=== PATIENT | male | born 1935 | race Caucasian/White ===

== ENCOUNTER 2019-06-27 13:13 | Inpatient (IN) | payer MEDICARE, BC ==
[~2019-06-27] VITALS: Ht 162.6 cm; Wt 64.8 kg
[2019-06-27] MEDS ORDERED: ASPIRIN E.C. 8181 MG PO (15:11)
[2019-06-27] MEDS ORDERED: TYLENOL 325MG325 MG PO (15:11)
[2019-06-27] MEDS ORDERED: VITAMIN D31000 I1 PO (15:12)
[2019-06-27] MEDS ORDERED: VITAMIN B122500 MCG PO (15:13)
[2019-06-27] MEDS ORDERED: FERROUSAL325 MG PO (15:14)
[2019-06-27] MEDS ORDERED: FOLIC ACID800 MCG PO (15:15)
[2019-06-27] MEDS ORDERED: NEURONTIN300 MG/CAP PO (15:16)
[2019-06-27] MEDS ORDERED: ULTRAVATE CREAM15 GM TP (15:17)
[2019-06-27] MEDS ORDERED: MULTI VITAMINS1 TAB PO (15:18)
[2019-06-27] MEDS ORDERED: NITROSTAT0.4 MG/TAB SL (15:19)
[2019-06-27] MEDS ORDERED: PRILOSEC 20MG20 MG PO (15:19)
[2019-06-27] MEDS ORDERED: ALTACE 5MG5 MG PO (15:20)
[2019-06-27] MEDS ORDERED: ZOCOR 10MG10 MG PO (15:20)
[2019-06-27] MEDS ORDERED: HYTRIN 5MG C5 MG/CAP PO (15:21)
[2019-06-27 16:45] LABS: BASO # 0.1 (0.0-0.2); BASO % 0.7 % (0.0-2.0); EOS # 0.1 (0.0-0.7); EOS % 1.4 % (0-4.0); GRAN # 6.6 (1.4-6.5); GRAN % 74.4 % (42.2-75.2); HEMATOCRIT 39.4 % (42.0-52.0); HEMOGLOBIN 12.9 g/dl (13.5-18.0); LYMPH # 1.4 (1.2-3.4); LYMPH % 15.4 % (20.0-51.0); MEAN CELL VOLUME 90 fl (80.0-100.0); MEAN CORPUSCULAR HEMOGLOBIN 30 pg (27.0-31.0); MEAN CORPUSCULAR HGB CONC 33 g/dl (33.0-37.0); MEAN PLATELET VOLUME 11.2 fl (7.4-10.4); MONO # 0.7 (0.1-0.6); MONO % 7.4 % (1.7-9.3); PLATELET COUNT 230 K/mm3 (130-400); RED BLOOD COUNT 4.37 M/mm3 (4.20-5.60); REDCELL DISTRIBUTION WIDTH-CV 13.6 % (11.5-14.5)
[2019-06-27 16:50] LABS: BILIRUBIN,TOTAL 0.3 mg/dL (0.0-1.0); CALCIUM 10.5 mg/dL (8.4-10.2); CREATININE, serum 1.02 (0.66-1.25); POTASSIUM 4.4 mmol/L (3.4-5.0); TOTAL PROTEIN 6.7 gm/dL (6.4-8.2)
[2019-06-27 17:00] VITALS: BP 127/52; PULSE 83; TEMP 98.4
[2019-06-27 18:00] LABS: PROTHROMBIN TIME 11.5 SECONDS (9.7-12.8)
[2019-06-27 19:48] VITALS: BP 144/56; PULSE 83; TEMP 98.3
[2019-06-27 23:20] VITALS: BP 115/54; PULSE 82; TEMP 99
[2019-06-28 04:47] VITALS: BP 125/58; PULSE 76; TEMP 98
[2019-06-28 07:18] LABS: BASO # 0.1 (0.0-0.2); BASO % 0.7 % (0.0-2.0); EOS # 0.2 (0.0-0.7); EOS % 1.9 % (0-4.0); GRAN # 6.3 (1.4-6.5); GRAN % 69.8 % (42.2-75.2); HEMATOCRIT 37.3 % (42.0-52.0); HEMOGLOBIN 12.2 g/dl (13.5-18.0); LYMPH # 1.5 (1.2-3.4); LYMPH % 16.7 % (20.0-51.0); MEAN CELL VOLUME 91 fl (80.0-100.0); MEAN CORPUSCULAR HEMOGLOBIN 30 pg (27.0-31.0); MEAN CORPUSCULAR HGB CONC 33 g/dl (33.0-37.0); MEAN PLATELET VOLUME 10.6 fl (7.4-10.4); MONO % 10.6 % (1.7-9.3); PLATELET COUNT 206 K/mm3 (130-400); RED BLOOD COUNT 4.12 M/mm3 (4.20-5.60); REDCELL DISTRIBUTION WIDTH-CV 13.8 % (11.5-14.5)
[2019-06-28 07:19] VITALS: BP 128/59; PULSE 77; TEMP 98.4
[2019-06-28 07:29] LABS: CALCIUM 10.3 mg/dL (8.4-10.2); CREATININE, serum 1.02 (0.66-1.25)
[2019-06-28 11:49] VITALS: BP 119/52; PULSE 70; TEMP 98.3
[2019-06-28 16:23] VITALS: BP 120/57; PULSE 71; TEMP 98.2
[2019-06-28 19:55] VITALS: BP 114/50; PULSE 76; TEMP 98.6
[2019-06-29 00:08] VITALS: BP 127/52; PULSE 70; TEMP 98.4
[2019-06-29 07:40] VITALS: BP 166/55; PULSE 80; TEMP 97.9
[2019-06-29 11:40] VITALS: BP 166/55; PULSE 80; TEMP 97.9
[2019-06-29] MEDS ORDERED: NORCO 325 MG-51 TAB PO (15:47)
[2019-06-29] MEDS ORDERED: LIPITOR 10MG10 MG PO (15:48)
[2019-06-29 16:07] VITALS: BP 166/55; PULSE 80; TEMP 97.9
== END 2019-06-29 16:15 | DRG 536 ==
LOC: COL.ER 13:13 → EDBD 13:14 → COL.ER 13:14 → SURG 14:38
PROVIDERS: Emergency Medicine; Physician Assistant; ADMIT Internal Medicine
DX: S72.24XA Nondisplaced subtrochanteric fracture of right femur, initial encounter for closed fracture (principal); M97.01XA Periprosthetic fracture around internal prosthetic right hip joint, initial encounter; I25.10 Atherosclerotic heart disease of native coronary artery without angina pectoris; E78.5 Hyperlipidemia, unspecified; K21.9 Gastro-esophageal reflux disease without esophagitis; I10 Essential (primary) hypertension; N40.0 Benign prostatic hyperplasia without lower urinary tract symptoms; Z96.643 Presence of artificial hip joint, bilateral; Z96.653 Presence of artificial knee joint, bilateral; Z96.611 Presence of right artificial shoulder joint; Z95.5 Presence of coronary angioplasty implant and graft; Z79.82 Long term (current) use of aspirin; Z87.891 Personal history of nicotine dependence; Y93.89 Activity, other specified; Y92.59 Other trade areas as the place of occurrence of the external cause; Y99.8 Other external cause status; W01.0XXA Fall on same level from slipping, tripping and stumbling without subsequent striking against object, initial encounter
CPT/HCPCS: 99222-AI; 99231-AI; 99239; A9284

== ENCOUNTER 2019-06-29 13:14 | Inpatient (IN) | payer MEDICARE, BC ==
[~2019-06-29] VITALS: Ht 162.6 cm; Wt 64.6 kg
[~2019-06-29 13:14] MED LIST: ALTACE 5MG5 MG PO; ASPIRIN E.C. 8181 MG PO; FERROUSAL325 MG PO; FOLIC ACID800 MCG PO; HYTRIN 5MG C5 MG/CAP PO; MULTI VITAMINS1 TAB PO; NEURONTIN300 MG/CAP PO; NITROSTAT0.4 MG/TAB SL; PRILOSEC 20MG20 MG PO; TYLENOL 325MG325 MG PO; ULTRAVATE CREAM15 GM TP; VITAMIN B122500 MCG PO; VITAMIN D31000 I1 PO; ZOCOR 10MG10 MG PO
[2019-06-29] MEDS ORDERED: NORCO 325 MG-51 TAB PO (15:47)
[2019-06-29] MEDS ORDERED: LIPITOR 10MG10 MG PO (15:48)
[2019-06-29 17:16] VITALS: BP 168/50; PULSE 72; TEMP 97.9
--- NOTE | 2019-06-29 20:04 | NUR ---
Patient arrived to [facility] this evening via wheelchair from surgical. Patient was accompanied by his family and . Received report from Surgical nurse. Initial was completed. Patient currently resting in bed at this time, call light in reach and bed alarm is on. Patient reporting right hip pain and was given prn [place]. Will continue to monitor. Reported off to night nurse.
--- NOTE | 2019-06-29 21:15 | NUR ---
PATIENT MEDICATED WITH HS MEDS AT THIS TIME. USING URINAL AT BEDSIDE. DENIES NEED FOR PAIN MEDS, RT HIP IS NOT BRUISED AT THIS TIME. HAS SCDS ON BILATERAL LOWER LEGS.
[2019-06-30 05:16] VITALS: BP 156/55; PULSE 73; TEMP 98.6
[2019-06-30 06:00] VITALS: BP 156/55; PULSE 73; TEMP 98.6
--- NOTE | 2019-06-30 06:00 | NUR ---
Takes AM med without problem. Denies need for pain meds at this time.
--- NOTE | 2019-06-30 08:45 | NUR ---
Patient sitting up in bed. A&O, Denies pain, but has requested pain medication before therapy. VSS. SCD's bilateral feet. Legs elevated. Patient independent with urinal. No further needs expressed from patient. Call light within reach
--- NOTE | 2019-06-30 09:35 | NUR ---
Follow-up visit; Patient thanked Windows Server Architect for looking in on him and wishing him well and a good weekend.
--- NOTE | 2019-06-30 10:50 | NUR ---
SW met with the patient to complete assessment on Rehab. Pt is alert & oriented. He is able to verbally communicate his needs & wants to others. Pt lives at home w/ his , who has issues w/ her back & tremors. They just moved to [place] from [place] about 1 week ago & live in a 1 level duplex w/ not steps to enter. The bathroom has a walk-in shower w/ door, built-in seat, grab bars, & hand held shower head. The toilet is ADA height. Pt reports walking w/out a device in the home & uses a s/cane in the community. He reported he does his own ADL's, most of the cooking, housekeeping, laundry, shopping, drove, medication management, & finance management. Pt reports having a walker (unsure if it has wheels or not), s/cane, & shower chair. Pt does not receive any services. Pt's PCP is Dr. Destinee Jefferson from [place] and he receives his medications at [facility], & reports no difficulties obtaining his meds. Pt's goal is to be able to be able to return home & take care of self. Will continue to follow for support & d/c planning.
[2019-06-30 15:33] VITALS: BP 114/51; PULSE 72; TEMP 98
--- NOTE | 2019-06-30 18:00 | NUR ---
Patient had an uneventful day. Currently laying in bed with family at the bedside. A&O, VSS. Pain medication given when requested. Patient worked with therapy and tolerated well. Legs elevated on pillows. No further needs expressed from patient. Call light within reach
[2019-06-30 18:29] VITALS: BP 116/50; PULSE 76; TEMP 98.4
--- NOTE | 2019-06-30 19:40 | NUR ---
PT RESTING IN BED. C/O RT HIP PAIN. WANTS TO WAIT LOSER TO HS FOR PAIN MED. INCONT BLADDER. CHANGED CLOTHING, PULL SHEET. 2:1 TURN D/T PAIN. HIP PRECAUTIONS CONTINUE. CALL LIGHT IN REACH.
[2019-07-01 05:48] VITALS: BP 151/69; PULSE 79; TEMP 98.2
--- NOTE | 2019-07-01 08:32 | NUR ---
Report from LUCRECIA Amaya. Pt sitting up in bed for breakfast, yellow gown and wristband and SCDs to BLE. Pt took pills whole with thin liquids. Took norco for pain prior to therapy sessions this morning. Denies dizziness/numbness/tingling. 2 assist for pivot transfers. Alert and pleasant.
--- NOTE | 2019-07-01 16:27 | NUR ---
Pt stated ensure not delivered, made beatrice shake with ice cream and ensure. Turned bed alarm on, call lt and urinal in reach. Pt had requested to change out of clothes after therapies finished this morning in order for him to be in a hospital gown and use the urinal better.
[2019-07-01 16:57] VITALS: BP 122/41; PULSE 85; TEMP 98.6
--- NOTE | 2019-07-01 19:14 | NUR ---
Report to LUCRECIA Amaya.
--- NOTE | 2019-07-01 21:00 | NUR ---
PT PLEASANT AND COOPERATIVE. 2:1 ASSIST PIVOT TRANSFER TO BSC. INCREASED PAIN WITH ACTIVITY. RT TTWB. PT VOIDED WITH LARGE BROWN SOFT FORMED BM. BACK TO BED. REPOSTIONED OFF SACRUM. SCD'S ON BILAT. CALL LIGHT IN REACH. BED ALARM SET.
--- NOTE | 2019-07-01 23:13 | NUR ---
PT HAS HAD SCD'S SINCE ADMISSION.
[2019-07-02 05:13] VITALS: BP 135/57; PULSE 71; TEMP 98
--- NOTE | 2019-07-02 09:31 | NUR ---
Report from LUCRECIA Amaya. Pt set up in bed for breakfast, edu about pain and PRN meds, agreeable to taking one norco as pt denies pain at rest but 8-10/10 when up. Bed alarm on, call lt and phone in reach, set up for electric shaving, reports he already brushed teeth.
--- NOTE | 2019-07-02 13:22 | NUR ---
Several family members visited pt who declined offer to transfer OOB to for visiting. Pt denies any needs.
--- NOTE | 2019-07-02 15:40 | NUR ---
Returned pt's home vial of nitro pills to pt's .
[2019-07-02 17:25] VITALS: BP 136/52; PULSE 78; TEMP 98.7
--- NOTE | 2019-07-02 19:08 | NUR ---
Report to LUCRECIA Amaya.
--- NOTE | 2019-07-02 19:09 | NUR ---
For supper pt ate food from home: one serving ~4 oz salmon, about 2/3 c "hamburger" soup. Provided beatrice milkshake made with ice cream and ensure this afternoon as his enlive was not delivered.
--- NOTE | 2019-07-02 20:30 | NUR ---
PT RESTING IN BED. SEE MAR FOR PAIN MED GIVEN FOR RLE PAIN. USES URINAL AT HS. CALL LIGHT IN REACH. BED ALARM SET.
[2019-07-03 05:44] VITALS: BP 154/66; PULSE 72; TEMP 98
--- NOTE | 2019-07-03 07:33 | NUR ---
Patient reported sleeping very well last night. He ate 85% of breakfast this morning. He reported having a BM the last two morning. No incontinence this morning. Patient given prn [place] prior to therapy this morning. Will continue to monitor.
--- NOTE | 2019-07-03 13:47 | NUR ---
Admission QIM scores were reviewed by the team. Code of 2 chosen for lower body dressing was determined by team discussion to be the most usual performance for this patient during the assessment period. Code of 2 chosen for sit to stand was determined by team discussion to be the most usual performance for this patient during the assessment period. Code of 88 chosen for walk 10 feet was determined by team discussion to be the most usual performance for this patient during the assessment period.--Paty Kasper, PD
[2019-07-03 16:57] VITALS: BP 130/44; PULSE 70; TEMP 98.2
--- NOTE | 2019-07-03 18:30 | NUR ---
Patient resting in bed at this time, call light in reach and bed alarm is on. Denies questions at this time.
--- NOTE | 2019-07-03 20:30 | NUR ---
HS meds all reviewed along with pain med for RLE pain with movement. Patient rests in bed. Declines snack and HS care at this time.
--- NOTE | 2019-07-04 02:21 | NUR ---
Patient has been resting with eyes closed. Respirations with ease.
[2019-07-04 04:11] VITALS: BP 144/58; PULSE 67; PULSE 670; TEMP 98.5
--- NOTE | 2019-07-04 10:29 | NUR ---
Patient working with therapy at this time. Patient having right hip pain and given prn pain meds with good effect. Denied questions this morning.
--- NOTE | 2019-07-04 11:40 | NUR ---
Visited w/ pt. He stated he continues to do okay but doesn't feel he is doing as well today as he did yesterday. Talked about how emotionally he was just in a better place yesterday then today. Inquired how SW could help & he stated the visits have been very nice & helpful. He also knows he just needs to keep working w/ the therapists to get better. Told him the Team Conference is tomorrow & he commented that he wants to go home but not until he can be more self sufficient. Pt had no questions/concerns at this time.
--- NOTE | 2019-07-04 13:57 | NUR ---
Patient just left for group therapy downstairs.
[2019-07-04 17:13] VITALS: BP 142/50; PULSE 68; TEMP 97.8
--- NOTE | 2019-07-04 18:33 | NUR ---
Patient reported having some reflux this afternoon and evening and wanted to have his or daughter bring in his regular perscription for this. His daughter will try to bring them in tonight or tomorrow.
--- NOTE | 2019-07-04 19:40 | NUR ---
Patient sits up in recliner visiting with daughter. Denies pain at this time. Daughter brought in patients home prilosec and given. HS meds reviewed and given. States will take pain med prior to sleep.
--- NOTE | 2019-07-04 22:30 | NUR ---
Patient rests in bed with eyes closed. Urinal emptied by nurse.
--- NOTE | 2019-07-05 02:00 | NUR ---
Patient woke up when nurse into empty urinal. Denies needs.
[2019-07-05 05:11] VITALS: BP 143/55; PULSE 66; TEMP 97.7
--- NOTE | 2019-07-05 05:23 | NUR ---
Patient reports slept well and denies pain at this time.
--- NOTE | 2019-07-05 08:41 | NUR ---
Report from LUCRECIA Hwang. Pt was assisted OOB to chair and dressed by RADHA. Brought oral and shaving items to tray and pt Indep with these, glasses in place, call lt in reach, chair alarm on, shoes in place. Pt reports wearing his SCDs overnight. Sulphur given per request prior to start of PT at 0900.
--- NOTE | 2019-07-05 12:07 | NUR ---
Pt to chair for lunch, enc pt to call for staff to empty his urinal to avoid room service needing to place his meal tray on his bedside table and urinal is in the way. Pt verbalized understanding. Reports left shoulder pain, and he is walking 50' with walker, wants to be 100% before going home because he doesn't want to burden his . Denies any questions for the doctor.
--- NOTE | 2019-07-05 15:38 | NUR ---
Reviewed the Team Conference notes w/ pt. He stated he understood & agreed w/ current level of functioning. Informed him of d/c for 07/12/19, w/ recommendation for home w/ home health. He stated that he hopes he will be doing well enough by then. Reviewed that team is recommending he have a r/walker & stated his has one. Asked that he have his family bring the walker in for the therapist to adjust it. Also talked to him about scheduling a pt/family conference for early next week. He stated he would talk w/ his family & get back w/ SW. He did not have any other questions/concerns at this time.
--- NOTE | 2019-07-05 17:17 | NUR ---
Pt's and daughter visiting, pt to chair for nishant, reviewed plan for one norco for now and one-two later.
[2019-07-05 18:08] VITALS: BP 159/49; PULSE 73; TEMP 98.1
--- NOTE | 2019-07-05 19:18 | NUR ---
Bedside report to LUCRECIA Amaya. Bed alarm turned on. Call lt and urinal in reach.
--- NOTE | 2019-07-05 20:30 | NUR ---
BEDSIDE REPORT WITH PER Mckay RN EARLIER. PT RESTING IN BED. C/O OVERDOING IT IN THERAPY TODAY. WANTS PAIN AT HS. SCD'S ON BILAT. REFUSED FLOAT HEELS. USES URINAL AT HS. CALL LIGHT IN REACH. BED ALARM SET.
[2019-07-06 05:22] VITALS: BP 148/52; PULSE 72; TEMP 97.9
--- NOTE | 2019-07-06 08:21 | NUR ---
Bedside report from LUCRECIA Amaya. RADHA Asher assisted pt OOB to chair and dressed for PT and stood at sink to brush teeth with gait belt and walker. Glasses and shoes in place, yellow wristband on. Dentures in place. Pt took pills whole with thin liquids, apologizes if he was grumpy. Pleasant. Urinal in reach. Cell phone on table, enc IS and pt did 2750 ml.
--- NOTE | 2019-07-06 11:39 | NUR ---
Was informed of pt wanting to speak w/ SW about d/c plans. Visited w/ pt & he stated he is concerned about going home because he doesn't want his to have to do anything. He still wants to have the pt/family conference, which he will talk to his family about doing either Wednesday or Wednesday.
--- NOTE | 2019-07-06 12:18 | NUR ---
Pt to chair for lunch, call lt in reach, edu about one norco now prior to 1300 therapy and can ask for second at any time, min pain at rest, good appetite, reviewed Wednesday's menu options and alts, chair alarm on, BLE elevated.
[2019-07-06 15:46] VITALS: BP 124/77; PULSE 71; TEMP 97.9
--- NOTE | 2019-07-06 17:22 | NUR ---
Pt in chair with alarm on, call lt in reach, shoes and glasses on, eating supper, called in alt meal choices through Wednesday lunch.
--- NOTE | 2019-07-06 19:14 | NUR ---
Bedside report to LUCRECIA Amaya. SCDs and bed alarm turned on, call lt in reach, pt denies needs at this time.
--- NOTE | 2019-07-06 20:17 | NUR ---
PT VERY PLEASANT AND COOPERTIVE. VERY APPRECIATIVE OF CARES PROVIDED AT [facility]. SEE MAR FOR PAIN MEDICATIONS GIVEN. DENIES NUMBNESS AND TINGLING TO RLE. STRONG BLE PULSES. VOIDING PER URINAL. GLASSES AND HEARING AIDED OFF. CALL LIGHT IN REACH. BED ALARM SET.
[2019-07-07 06:00] VITALS: BP 116/47; BP 16/47; PULSE 72; TEMP 98.2
--- NOTE | 2019-07-07 07:56 | NUR ---
Resdient resting in recliner at this time, call light in reach and alarm is set. Patient denies questions at this time. Reports that he slept okay last night.
--- NOTE | 2019-07-07 10:05 | NUR ---
Follow-up visit with a card for patient's Birthday. Patient appeared pleased and thanked for visit and remembering his Birthday.
--- NOTE | 2019-07-07 11:53 | NUR ---
Patient resting in recliner eating his lunch. Call light in reach, chair alarm on, socks and shoes on. Patient takes pills whole with water. He walked with walker and gait belt from wheelchair to recliner and was observation only. Patient asked to not get any pain pills at this time. Discussed him going home soon and what he needed to work on to do that. He wants to be able to get in and out of bed by himself easier. Will continue to work with him.
--- NOTE | 2019-07-07 12:45 | NUR ---
Visited w/ pt. He stated he was having a good day. He did talk to SW about not wanting to go to a SNF now & wants to return home. Told him that is fine & that the team would be recommending home health, which he is receptive to. Did ask if he had talked to his family about doing a pt/family conference, which he had not. Offered to call them, which he was fine w/. Will continue to work w/ pt on d/c planning.
--- NOTE | 2019-07-07 13:43 | NUR ---
Contacted pt's daughter Roxana at [phone] ([employer]). Spoke w/ her about scheduling a pt/family conference for either Wednesday or Wednesday. She stated 07/10/19 would work the best & set it for 1:00 pm. She commented it would work good for Khadar as he is off that day.
--- NOTE | 2019-07-07 15:30 | NUR ---
Patient resting in recliner at this time, call light in reach and chair alarm is on. Patient educated on need to continue exercising when he is at home on a regular basis. He voiced understanding. His and daughter stopped by to visit. Denied any questions at this time. Patient given updated med list and Daily task list to help him stay organized with meds and blood pressure checks. He voiced understanding.
--- NOTE | 2019-07-07 15:35 | NUR ---
Patient currently resting in recliner at this time. Discussed discharge with patient, and daughter. Patient reports that he wants to get better at getting his legs in and out of bed by himself. This nurse spoke with Khadar in PT and he recommended patient rest up a bit this weekend. Patient was interested in trying Tylenol to help with pain control when not doing therapies. Patient's and daughter stopped by to see him. Will continue to monitor.
--- NOTE | 2019-07-07 16:51 | NUR ---
Patient resting in recliner, call light in reach and chair alarm is on.
[2019-07-07 16:56] VITALS: BP 96/47; PULSE 70; TEMP 98.1
--- NOTE | 2019-07-07 20:30 | NUR ---
HS meds all reviewed and given along with norco for right knee achyness. SCD's repositioned for comfort. Declines pillow under legs. HOB lowered and patient able to reposition self up in bed. Pleasant alert and oriented. Declines snack. States did HS care earlier.
[2019-07-07 22:15] VITALS: BP 144/53
--- NOTE | 2019-07-07 23:00 | NUR ---
Patient has been resting with eyes closed. Respirations with ease.
[2019-07-08 02:57] VITALS: BP 143/51; PULSE 69; TEMP 97.7
--- NOTE | 2019-07-08 03:00 | NUR ---
Patient has been resting with eyes closed on nursing rounds.
--- NOTE | 2019-07-08 05:33 | NUR ---
Urinal emptied. Patient states slept well. States pain with movement RLE but declines pain med at this time. HOB lowered and patient repositioned self up in bed using head board.
--- NOTE | 2019-07-08 11:50 | NUR ---
0730PT WAS TAUGHT HOW TO GET OUT OF BED HIMSELF. PT THEN TRANSFERED TO [facility] USING WALKER. PT HAD A LARGE SF GREENISH STOOL WITH SMALL AMT OF LIGHT YELLOW URINE PRESENT. PT WAS ASSISTED TO DRESS. NURSE HAD TO PUT ON PT'S SOCKS AND SHOES. PT PUT ON HIS SHIRT AND ASSISTED WITH PLACING HIS LEFT LEG INTO PANT LEG, NURSE ASSISTED WITH THE RIGHT LEG. PT THEN STOOD AND PULLED UP HIS PANTS, ZIPPERED THEM AND FASTENED THE BELT ALL WITH SBA. PT TURNED AND SAT IN THE RECLINER AND ATE 100% BREAKFAST MEAL. PT SHAVED HIMSELF WITH THE ELECTRIC RAZOR AFTER MEAL. PT HAS MINIMAL PAIN WITH SITTING BUT HE MOVES THE PAIN INCREASES. PT WAS GIVEN 2 NORCO AT 0800 TO ASSIST WITH PAIN DURING PT. 1145PT WAS GIVEN HIS 1200 MEDS. HE IS IN GOOD SPIRITS AND SITTING IN THE RECLINER. HIS LEGS WERE ELEVATED AND HE REQUESTED FOR THEM TO BE LOWERED, THIS WAS DONE. FAMILY THEN CAME FOR A VISIT BRINGING MONI FOR HIS BIRTHDAY.
[2019-07-08 17:15] VITALS: BP 148/54; PULSE 80; TEMP 98
--- NOTE | 2019-07-08 21:44 | NUR ---
Patient resting in bed, he is doing very well. Alert and oriented with VSS. Evening meds given. Has no other complaints at this time. Call light within reach, will continue to monitor
--- NOTE | 2019-07-09 03:21 | NUR ---
Patient doing well, resting in bed. Pain controlled. Has no concerns at this time. Call light within reach, will continue to monitor
[2019-07-09 06:00] VITALS: BP 141/45; PULSE 70; TEMP 98
--- NOTE | 2019-07-09 09:23 | NUR ---
PT HAD MINIMAL ASSIST OUT OF BED. HE WAS ABLE TO DO NEARLY EVERYTHING HIMSELF. I ASSISTED TO STEADY PT ONE TIME. STAFF RETRIEVED CLOTHES AND PT DID ALL OF THE UPPER CLOTHING AND WAS ASSISTED MOD TO GET PANTS AND SOCK ON. PT PUT ON HIS OWN SHOES. PT ATE 100% MEAL. WASHED HIS TEETH AND AMBULATED FROM HIS ROOM AROUND TO SURGICAL NURSES STATION AND WITHIN 10 FT OF HIS ROOM BEFORE NEEDING THE WHEELCHAIR TO GET BACK INTO HIS ROOM. ALARMS ON, CALL LIGHT IN REACH AND FRESH WATER GIVEN
[2019-07-09 16:31] VITALS: BP 122/48; PULSE 71; TEMP 99.5
--- NOTE | 2019-07-09 18:12 | NUR ---
PT UP TO VOID SBA OFFERED. PT THEN CHANGED INTO GOWN AND GOT INTO BED. PT DID ALL BUT PULL OFF HIS PANTS AND SOCKS. PT FELT LIKE HE MAY HAVE OVER DONE THE WALKING TODAY. ENCOURAGED TO TAKE PAIN MEDS MORE SPREAD OUT DURING THE DAY TOMORROW. CALL LIGHT, REMOTE AND PHONE AT BEDSIDE
--- NOTE | 2019-07-09 20:09 | NUR ---
Patient doing well. Resting in bed. VSS. PM meds given. No complaints at this time. Call light wtryan webster, will continue to monitor
[2019-07-10 03:57] VITALS: BP 148/56; PULSE 63; TEMP 97.7
[2019-07-10 07:59] VITALS: BP 151/41; PULSE 72; TEMP 97.8
--- NOTE | 2019-07-10 08:00 | NUR ---
PATIENT IS SITTING UP IN THE CHAIR WITH HIS BREAKFAST TRAY THIS MORNING. PATIENT IS A&OX4. VSS. BOWEL SOUNDS ACTIVE ALL FOUR QUADRANTS. PATIENT TOLERATING DIET WITHOUT ANY COMPLAINTS OF N/V. POSITIVE PEDAL PULSES EQUAL BILATERALLY. PATIENT STATES THAT HIS PAIN IS A 4/10 ON A 0-10 SCALE, WITH PAIN IN THE RIGHT HIP AND KNEE THAT IS ACHY AND SHARP IN DESCRIPTION. PATIENT GIVEN 2 TABLETS OF PRN PAIN MEDICATION PRIOR TO WORKING WITH THERAPY. CALL LIGHT WITHIN REACH. PATIENT DENIES ANY NEEDS AT THIS TIME.
--- NOTE | 2019-07-10 11:36 | NUR ---
GUZMAN met with the patient to introduce oneself and to review how family meeting is for today at 1300. The patient reports that he doing okay. He states that the morning started out slow, but starting to feel more with it. He states that his , daughter, and son-in-law will all be present for the meeting. He expressed his concerns about discharging on Wednesday. He states that he does not feel ready to discharge back home by then. GUZMAN to inform IPR Director and will address concerns during the family meeting.
--- NOTE | 2019-07-10 14:04 | NUR ---
SW attended a family meeting with the patient, patient's , daughter, and son-in-law. Also present was IPR Director, PT, and OT. IPR Director, Paty, started by explaining the purpose of the meeting. PT & OT then discussed how the patient is doing and his progress. The patient expressed his concerns with a discharge on Wednesday and not feeling ready to discharge back home then. The patient states that he would feel more comfortable with a discharge on Wednesday, which would allow him more time being modified independent in the room. He states that he hopes to feel more confident by afternoon. IPR Director, Paty, also explained how if the patient returns home and does not feel comfortable; he has 30 days from his discharge from [facility] to go to a SNF. The patient and his family verbalized understanding. The patient is in agreeance to a tentative discharge this Wednesday, 07/14, with home health services for PT/OT. The team answered all patient and families questions. GUZMAN then followed up with the patient and his family and presented them with Medicare.gov's list of home health agencies that serve [place]. The patient and his chose [facility]. GUZMAN contacted and faxed a referral to Jabier at [facility]. Jabier reports that they are able to accept the patient for services. SW to inform the patient and will continue to follow.
[2019-07-10 17:45] VITALS: BP 136/41; PULSE 67; TEMP 99.3
--- NOTE | 2019-07-10 19:30 | NUR ---
Patient states he's tired and ready to go to bed. Undresses and dresses self in gown-nurse ties and arranges blankets. Patient able to get legs in bed with some difficulty. HS meds along with norco for pain reviewed and given. Declines snack.
--- NOTE | 2019-07-11 02:32 | NUR ---
Patient rests in bed with eyes closed. Respirations with ease.
[2019-07-11 03:28] VITALS: BP 153/52; PULSE 73; TEMP 98.2
--- NOTE | 2019-07-11 03:41 | NUR ---
Patient awake and used urinal/emptied by ABA THERAPIST. See vital signs. Denies needs at this time.
--- NOTE | 2019-07-11 07:00 | NUR ---
sitting up in chair eating breakfast, bedside shift report received from Eri RN
--- NOTE | 2019-07-11 07:45 | NUR ---
had breakfast and tolerated well, full assessment completed, see interventions for further info
--- NOTE | 2019-07-11 08:25 | NUR ---
medicated with hydrocodone 5mg 1 tab for c/os minimal pain and in anticipation of therapy
--- NOTE | 2019-07-11 09:48 | NUR ---
resting in chair after working with physical therapy
--- NOTE | 2019-07-11 13:25 | NUR ---
occupational therapy in working with patient, he is c/o pain and medicated with hydrocodone 5mg 1 tab
--- NOTE | 2019-07-11 14:33 | NUR ---
in bed and appears to be sleeping, eyes closed resp quiet and easy
--- NOTE | 2019-07-11 16:00 | NUR ---
awake now and sitting up in chair, denies needs
--- NOTE | 2019-07-11 17:15 | NUR ---
sitting up in chair eating supper, denies needs
[2019-07-11 18:00] VITALS: BP 129/56; PULSE 69; TEMP 98.4
--- NOTE | 2019-07-11 18:49 | NUR ---
up to bathroom independently, bedside shift report given to LUCRECIA Hwang
--- NOTE | 2019-07-11 19:40 | NUR ---
Patient dressed self in gown for HS and ambulating in room without problems with walker. Alert, pleasant. HS meds all reviewed and given along with norco prior to sleep for right hip and knee achyness.
--- NOTE | 2019-07-12 02:33 | NUR ---
Patient has been resting with eyes closed. Respirations with ease.
--- NOTE | 2019-07-12 03:57 | NUR ---
PATIENT AWAKE AND URINAL EMPTIED BY NURSE. PATIENT STATES "PAIN DOING OK RIGHT NOT" DENIES NEEDS.
[2019-07-12 05:22] VITALS: BP 155/55; PULSE 73; TEMP 97.6
--- NOTE | 2019-07-12 05:30 | NUR ---
REPORTS PAIN LEVEL 3/10 THIS AM AND NORCO GIVEN.L
--- NOTE | 2019-07-12 07:37 | NUR ---
Bedside report from LUCRECIA Hwang. Pt to chair, dressed for breakfast. Requests norco prior to therapy. A&O, pleasant. Denies further needs at this time.
--- NOTE | 2019-07-12 12:33 | NUR ---
Confirmed order for Mod I in room with walker. Pt's family visited. Pt to chair for lunch, norco for pain prior to afternoon therapies, good appetite, pleasant, denies needs.
--- NOTE | 2019-07-12 15:05 | NUR ---
GUZMAN met with the patient to present and discuss the IPR Team Conference Note. GUZMAN reviewed the plan for a discharge this Wednesday, 07/14, with home health services for PT/OT through [facility]. The patient is in agreeance to this plan. He states that he is able to get in and out of bed and now has a morning routine before breakfast. The patient had no other questions or concerns for SW. He states that he plans to take it easy for the rest of the afternoon. GUZMAN to continue to follow.
--- NOTE | 2019-07-12 16:04 | NUR ---
Pt called for assist with moving wheelchair out of way. Jarrett Mod I in rm with walker.
[2019-07-12 17:44] VITALS: BP 119/47; PULSE 68; TEMP 98.2
--- NOTE | 2019-07-12 19:21 | NUR ---
Bedside report to LUCRECIA Hwang. Pt's family visiting. Denies needs.
--- NOTE | 2019-07-12 19:37 | NUR ---
Patient sitting up in recliner. Bedside shift report received from Karolina SINGER. Patient denies complaints of or needs at this time. Dr. Gage in visiting.
[2019-07-13 04:45] VITALS: BP 143/51; PULSE 66; TEMP 98.2
--- NOTE | 2019-07-13 04:59 | NUR ---
Patient awake. States slept "pretty good". Urinal emptied. Reports having no pain at this time. Requests that he has OT first for showering instead of PT first. Encouraged to visit with therapy about schedule this am.
--- NOTE | 2019-07-13 08:00 | NUR ---
UPON ENTRY TO THE ROOM THE PATIENT IS SITTING UP IN THE CHAIR. PATIENT IS A&OX4. HEART MURMUR NOTED, VSS. BOWEL SOUNDS ACTIVE ALL FOUR QUADRANTS. PATIENT TOLERATING DIET WITHOUT ANY COMPLAINTS OF N/V. POSITIVE PEDAL PULSES EQUAL BILATERALLY. PATIENT GIVEN PRN OAIN MEDICATION PRIOR TO WORKING WITH THERAPY THIS MORNING. PATIENT STATES THAT THE PAIN IS MOSTLY IN HIS KNEE AND IS WORSE WITH MOVEMENT. CALL LIGHT WITHIN REACH. PATIENT DENIES ANY OTHER NEEDS AT THIS TIME.
[2019-07-13] MEDS ORDERED: NORCO 325 MG-51 TAB PO (14:19)
[2019-07-13 16:53] VITALS: BP 119/52; PULSE 69; TEMP 98.8
--- NOTE | 2019-07-13 19:15 | NUR ---
REPORT GIVEN TO LUCRECIA DOMINGUEZ.
--- NOTE | 2019-07-14 00:08 | NUR ---
SITTING IN RECLINER. CHEERFUL. SHIFT REPORT EARLIER WITH KATHLEEN Henry RN SEE MAR FOR PAIN MED GIVEN. RT HIP PAIN 5. ENC TO CALL IF UNSTEADY GETTING UO TO BR. MOD I IN ROOM.
[2019-07-14 03:53] VITALS: BP 148/60; PULSE 64; TEMP 97.8
--- NOTE | 2019-07-14 11:02 | NUR ---
The patient is to discharge back home with his today, 07/14, and home health services for half-way/PT/OT through [facility]. GUZMAN contacted and faxed the patient's discharge orders to Jabier at [facility]. GUZMAN presented and explained the IM form to the patient. The patient verbalized understanding, signed, and he was provided a copy. No additional needs at this time.
--- NOTE | 2019-07-14 11:19 | NUR ---
Report from LUCRECIA Amaya. Pt gabriel mod I in , plan to discharge home this afternoon with family. Returned pt's home med Omeprazole to pt. Appts scheduled. Faxed DC paperwork to new PCP office, received "OK" fax receipt. Brittany for pain. Pt A&O, pleasant.
--- NOTE | 2019-07-14 15:08 | NUR ---
Printed Pt Health Summary, Discharge Summary, and Home Med List and reviewed with daughter and AIME. Stressed importance of follow up appointments. Reviewed medications, provided printed prescription for [place], pt states he has all other meds at home. Belongings gathered by DANE Duvall, pt, family, including dentures, hearing aids, glasses, adaptive equipment, clothes, shoes, gold wedding band, cell phone, electric shaver and power cord. Returned pt's own omeprazole used at hospital, pt signed form. Pt transported via wheelchair by DANE Duvall for ride home with family. Pt and family denied questions.
== END 2019-07-14 15:05 | disposition home health service (06) | DRG 561 ==
PROVIDERS: ADMIT Internal Medicine
DX: S72.24XD Nondisplaced subtrochanteric fracture of right femur, subsequent encounter for closed fracture with routine healing (principal); I25.10 Atherosclerotic heart disease of native coronary artery without angina pectoris; I10 Essential (primary) hypertension; E78.5 Hyperlipidemia, unspecified; K21.9 Gastro-esophageal reflux disease without esophagitis; N40.0 Benign prostatic hyperplasia without lower urinary tract symptoms; L30.9 Dermatitis, unspecified; W18.30XD Fall on same level, unspecified, subsequent encounter; Z79.82 Long term (current) use of aspirin; Z79.891 Long term (current) use of opiate analgesic; Z95.5 Presence of coronary angioplasty implant and graft; Z95.1 Presence of aortocoronary bypass graft; Z96.643 Presence of artificial hip joint, bilateral; Z96.611 Presence of right artificial shoulder joint; Z96.653 Presence of artificial knee joint, bilateral; Z87.891 Personal history of nicotine dependence
CPT/HCPCS: 99222-AI; 99231-AI; 99232-AI; 99239; J1650

== ENCOUNTER 2020-10-18 08:19 | Day surgery (SDC) | payer MEDICARE, BC ==
[2020-10-18] VITALS (15 sets, daily range): BP systolic 112–161; BP diastolic 50–76; PULSE 53–69; TEMP 98–98.6
[~2020-10-18] VITALS: Ht 162.6 cm; Wt 63.7 kg
[~2020-10-18 08:19] MED LIST changes: +ALTACE 10MG TAB10 MG PO; -ALTACE 5MG5 MG PO; +LIPITOR 10MG10 MG PO; +NORCO 325 MG-51 TAB PO
--- NOTE | 2020-10-18 08:48 | NUR ---
Initial visit; Patient remembers Housekeeping Attendant from prior visit. Housekeeping Attendant offered prayer for a successful procedure for Don and rapid and thorough healing and mentioned it was good to see him again.
[2020-10-18 08:58] LABS: HEMATOCRIT 39.7 % (42.0-52.0); MEAN CELL VOLUME 91 fl (80.0-100.0); MEAN CORPUSCULAR HEMOGLOBIN 30 pg (27.0-31.0); MEAN CORPUSCULAR HGB CONC 33 g/dl (33.0-37.0); PLATELET COUNT 227 K/mm3 (130-400); RED BLOOD COUNT 4.38 M/mm3 (4.20-5.60); REDCELL DISTRIBUTION WIDTH-CV 13.5 % (11.5-14.5)
[2020-10-18 09:05] LABS: PROTHROMBIN TIME 11.7 SECONDS (9.7-12.8)
[2020-10-18 09:07] LABS: PARTIAL THROMBOPLASTIN TIME 32.6 SECONDS (26.0-37.0)
[2020-10-18 09:09] LABS: CALCIUM 10.4 mg/dL (8.4-10.2); CREATININE, serum 1.22 (0.66-1.25); POTASSIUM 4.6 mmol/L (3.4-5.0)
[2020-10-18] MEDS ORDERED: MAG-OX 400400 MG/TAB PO (09:17)
[2020-10-18] MEDS ORDERED: EXCEDRIN1 TAB PO (09:18)
[2020-10-18] MEDS ORDERED: ZYRTEC 10MG10 MG PO (09:20)
--- NOTE | 2020-10-18 11:59 | NUR ---
Pt is back from mini lab operator, bs report from Danilo SINGER. pt is awake and alert, pwd, NSR/NSB on monitor. Rt groin site soft, dressing clean and dry, cms intact distal.
--- NOTE | 2020-10-18 13:51 | NUR ---
PT DOING WELL DURING HIS RECOVERY, SMALL AMT BLOOD SOAKED THROUGH DRESSING, SITE SOFT WITHOUT HEMATOMA, MILD PRESSURE FOR SEVERLA MINUTES, AREA MARKED ON DRESSING WCTM. PT REMAINS IN SINUS RHYTHM, NO COMPLAINTS. USED URINAL VOIDING 600 CC. PT NOW SITTING WITH HOB 30DEG, EATING LUNCH.
--- NOTE | 2020-10-18 18:41 | NUR ---
Pt up to room 355 from [facility] cath this morning. Pt independent w/ cane. Pt on room air. Dinner delivered, pt sitting on EOB eating dinner. No further needs at this time. Will give report to assembler 1st shift.
--- NOTE | 2020-10-18 18:50 | NUR ---
REPORT GIVEN TO PER SINGER. PT TRANSPORTED TO FLOOR VIA WHEELCHAIR AND SET UP WITH HIS DINNER IN ROOM 355. I CALLED PT'S AND DAUGHTER TO LET THEM KNOW HE WAS SETTLED. DAUGHTER PLANS TO COME UP FOR VISIT.
--- NOTE | 2020-10-18 20:00 | NUR ---
Report received, assumed care for night shift manager. Assessment complete. VS stable. A&Ox3-drowsy. Denies pain/nausea/shortness of breath. Dressing to right groin-tegaderm/gauze-old drainage circled-no new drainage noted. Plan of care discussed for this shift to include HS meds/calling for questions/concerns. Denies current needs. Call light in reach. Will monitor.
[2020-10-19 01:15] VITALS: BP 107/66; BP 95/66; PULSE 79; TEMP 98.3
[2020-10-19 03:49] VITALS: BP 120/52; PULSE 68; TEMP 98.6
--- NOTE | 2020-10-19 04:14 | NUR ---
PCT reports patient requesting tylenol for dull headache-rating pain 3/10 on pain scale. Tylenol given per dr order. Also requesting AM dose of Protonix. Given per request. Denies any other needs. Call light in reach. Will monitor.
[2020-10-19 07:13] LABS: BASO # 0.1 (0.0-0.2); BASO % 0.9 % (0.0-2.0); EOS # 0.5 (0.0-0.7); EOS % 4.9 % (0-4.0); GRAN # 6.2 (1.4-6.5); HEMATOCRIT 40.2 % (42.0-52.0); HEMOGLOBIN 12.9 g/dl (13.5-18.0); LYMPH % 19.9 % (20.0-51.0); MEAN CELL VOLUME 92 fl (80.0-100.0); MEAN CORPUSCULAR HEMOGLOBIN 30 pg (27.0-31.0); MEAN CORPUSCULAR HGB CONC 32 g/dl (33.0-37.0); MONO % 10.6 % (1.7-9.3); PLATELET COUNT 236 K/mm3 (130-400); RED BLOOD COUNT 4.38 M/mm3 (4.20-5.60); REDCELL DISTRIBUTION WIDTH-CV 13.6 % (11.5-14.5)
[2020-10-19 07:18] LABS: CALCIUM 10.5 mg/dL (8.4-10.2); CREATININE, serum 1.21 (0.66-1.25); POTASSIUM 4.3 mmol/L (3.4-5.0)
[2020-10-19 07:57] VITALS: BP 126/99; PULSE 73; TEMP 97.5
--- NOTE | 2020-10-19 08:41 | NUR ---
Pt assessment complete. Pt is laying in bed upon entry, he is A/O x4. His breathing is even and unlabored on RA. Pt denies SOB. No pain or chest pain. Site to R groin has a scant amount of dry blood. No hematoma present. Pt denies needs at this time. Call light within reach.
[2020-10-19 12:02] VITALS: BP 92/59; PULSE 78; TEMP 98
[2020-10-19] MEDS ORDERED: LIPITOR 80MG80 MG PO (13:03)
[2020-10-19] MEDS ORDERED: BRILINTA90 MG PO (13:03)
--- NOTE | 2020-10-19 13:17 | NUR ---
First visit from the grating machine operator. No needs right now.
--- NOTE | 2020-10-19 13:51 | NUR ---
Discharge paperwork and instructions reviewed with patient and his daughter. All questions answered at this time. IV to LAC dc'd catheter tip intact. Pt wheeled out of facility at this time.
--- NOTE | 2020-10-19 14:32 | NUR ---
SW met with patient to complete intake. Patient states that he lives with is Silvia [phone]. Patient provides that he uses a cane, and is independent with ADL's. Patient provides that his PCP is Dr. Colon, pharmacy is [facility], and that he is able to afford his medications. Patient states that his DPOA-HC is his . Patient also states that he plans to go back to his home upon DC. SW will continue to follow.
== END 2020-10-19 13:52 | disposition home or self-care (01) ==
LOC: COL.CAR 08:19 → MEDICAL 18:41 → COL.CAR 10-19 13:52
PROVIDERS: Internal Medicine Cardiovascular Disease
DX: R94.39 Abnormal result of other cardiovascular function study (principal); I48.0 Paroxysmal atrial fibrillation; I25.10 Atherosclerotic heart disease of native coronary artery without angina pectoris; I73.9 Peripheral vascular disease, unspecified; Z95.1 Presence of aortocoronary bypass graft; I10 Essential (primary) hypertension; E78.5 Hyperlipidemia, unspecified; Z20.822 Contact with and (suspected) exposure to COVID-19
CPT/HCPCS: OP; C1725; C1760; C1769; C1874; C1887; C1894; C9600; C9601; J0583; J1644; J2250; J3010; Q9967

== ENCOUNTER 2021-04-30 22:18 | Emergency (ER) | payer MEDICARE, BC ==
[~2021-04-30] VITALS: Ht 162.6 cm; Wt 61.4 kg
[~2021-04-30 22:18] MED LIST changes: +BRILINTA90 MG PO; +EXCEDRIN1 TAB PO; +LIPITOR 80MG80 MG PO; +MAG-OX 400400 MG/TAB PO; +ZYRTEC 10MG10 MG PO
[2021-04-30 22:51] VITALS: TEMP 98.1
[2021-04-30 23:29] LABS: BASO # 0.1 (0.0-0.2); BASO % 1.1 % (0.0-2.0); EOS # 0.4 (0.0-0.7); EOS % 4.7 % (0-4.0); GRAN # 4.9 (1.4-6.5); GRAN % 58.5 % (42.2-75.2); HEMATOCRIT 38.4 % (42.0-52.0); HEMOGLOBIN 12.9 g/dl (13.5-18.0); LYMPH # 1.8 (1.2-3.4); LYMPH % 21.4 % (20.0-51.0); MEAN CELL VOLUME 91 fl (80.0-100.0); MEAN CORPUSCULAR HEMOGLOBIN 31 pg (27.0-31.0); MEAN CORPUSCULAR HGB CONC 34 g/dl (33.0-37.0); MEAN PLATELET VOLUME 9.5 fl (7.4-10.4); MONO # 1.2 (0.1-0.6); MONO % 13.8 % (1.7-9.3); PLATELET COUNT 233 K/mm3 (130-400); RED BLOOD COUNT 4.23 M/mm3 (4.20-5.60); REDCELL DISTRIBUTION WIDTH-CV 13.5 % (11.5-14.5)
[2021-04-30 23:44] LABS: ALBUMIN 4.1 gm/dL (3.5-5.0); BILIRUBIN,TOTAL 0.9 mg/dL (0.0-1.0); C-REACTIVE PROTEIN 1.5 mg/dL (0.0-0.9); CALCIUM 10.2 mg/dL (8.4-10.2); CREATININE, serum 1.18 (0.66-1.25); POTASSIUM 4.4 mmol/L (3.4-5.0); TOTAL PROTEIN 6.8 gm/dL (6.4-8.2)
[2021-05-01] MEDS ORDERED: FLAGYL500 MG PO (01:23)
[2021-05-01] MEDS ORDERED: CIPRO 500MG TA500 MG PO (01:23)
[2021-05-01 02:10] VITALS: BP 138/84; PULSE 73
== END 2021-05-01 02:10 | disposition home or self-care (01) ==
LOC: COL.ER 22:18
PROVIDERS: Emergency Medicine
DX: K52.9 Noninfective gastroenteritis and colitis, unspecified (principal); I10 Essential (primary) hypertension; I25.10 Atherosclerotic heart disease of native coronary artery without angina pectoris; Z79.82 Long term (current) use of aspirin; Z79.02 Long term (current) use of antithrombotics/antiplatelets; Z79.899 Other long term (current) drug therapy
CPT/HCPCS: J7030; Q9967

== ENCOUNTER 2021-05-18 01:45 | Emergency (ER) | payer MEDICARE, BC ==
[2021-05-18] VITALS (9 sets, daily range): BP systolic 66–127; BP diastolic 34–68; PULSE 86–99; TEMP 97.5–98.7
[~2021-05-18] VITALS: Ht 162.6 cm; Wt 62.7 kg
[~2021-05-18 01:45] MED LIST changes: +CIPRO 500MG TA500 MG PO; +FLAGYL500 MG PO
[2021-05-18 02:10] LABS: BASO # 0.1 (0.0-0.2); BASO % 0.7 % (0.0-2.0); EOS # 0.1 (0.0-0.7); EOS % 0.6 % (0-4.0); GRAN # 7.5 (1.4-6.5); GRAN % 82.6 % (42.2-75.2); LYMPH # 0.8 (1.2-3.4); LYMPH % 8.8 % (20.0-51.0); MEAN CELL VOLUME 96 fl (80.0-100.0); MEAN CORPUSCULAR HGB CONC 32 g/dl (33.0-37.0); MEAN PLATELET VOLUME 9.6 fl (7.4-10.4); MONO # 0.6 (0.1-0.6); MONO % 6.6 % (1.7-9.3); PLATELET COUNT 208 K/mm3 (130-400); RED BLOOD COUNT 2.92 M/mm3 (4.20-5.60); REDCELL DISTRIBUTION WIDTH-CV 13.9 % (11.5-14.5)
[2021-05-18 02:11] LABS: HEMOGLOBIN 8.9 g/dl (13.5-18.0); MEAN CORPUSCULAR HEMOGLOBIN 30 pg (27.0-31.0)
[2021-05-18 02:18] LABS: INR 1.1 (0.8-3.0); PROTHROMBIN TIME 12.7 SECONDS (9.7-12.8)
[2021-05-18 02:23] LABS: ALBUMIN 2.9 gm/dL (3.5-5.0); BILIRUBIN,TOTAL 0.4 mg/dL (0.0-1.0); CALCIUM 9.3 mg/dL (8.4-10.2); CREATININE, serum 1.17 (0.66-1.25); POTASSIUM 4.7 mmol/L (3.4-5.0)
== END 2021-05-18 09:45 | disposition short-term general hospital (02) ==
LOC: COL.ER 01:45 → SURG 04:05 → COL.ER 04:05
PROVIDERS: Student in an Organized Health Care Education/Training Program
DX: K92.2 Gastrointestinal hemorrhage, unspecified (principal); I10 Essential (primary) hypertension; I25.10 Atherosclerotic heart disease of native coronary artery without angina pectoris; Z87.891 Personal history of nicotine dependence; Z79.82 Long term (current) use of aspirin; Z79.899 Other long term (current) drug therapy
CPT/HCPCS: C9113; J2405; J7030; P9016; Q9967